=== PATIENT | female | born 1980 | race Two or more races ===

== ENCOUNTER 2023-08-08 08:51 | Outpatient (AMB) | payer OTHER, SELFPAY ==
--- NOTE | 2023-08-08 09:55 | MHC.OFFWIV ---
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 Patient reports symptoms of cough, chest tightness, sinus tenderness, sore throat, x2 weeks. Patient has been utilizing allergy medication and keci-ohc-mdupcre Sudafed with mild relief. Patient reports that usually once per year she gets a sinus infection, this feels similar. Denies sick contacts. Denies fever, chest pain, shortness a breath, nausea, vomiting, diarrhea. On physical exam patient has erythema and cobblestoning of the pharynx. Positive for sinus tenderness. TM intact and pearly lehman bilaterally. Breath sounds clear bilaterally, heart sounds normal, S1-S2. Will obtain URI swab today. Will call patient results [facility] Social History Patient Tobacco Use Status: Never used Tobacco Review of Systems Const All systems reviewed & are unremarkable except as noted in HPI and below Denies chills and Denies fever(s) Physical Exam Vital Signs: Last Vital Signs Temp 98.0 F 08/08/23 10:00 Pulse 90 08/08/23 10:00 BP 126/80 08/08/23 10:00 Pulse Ox 97 08/08/23 10:00 Oxygen Delivery Method Room Air 08/08/23 10:00 BMI result Body Mass Index 38.4 Const Other: Appearance: Alert.? Oriented X3.? No acute distress.? Head: Normocephalic, Eyes: SClera white. ENT: Pharynx erythema and cobblestoned. No exudates. TM intact and pearly lehman bilaterally. + sinus tenderness. Neck: Normal inspection.? Neck supple.?Full ROM. CVS: Normal heart rate and rhythm.? Pulses normal.? Respiratory: No respiratory distress.? Breath sounds normal.? Neuro: Oriented X 3.? Assessment & Plan Assessment & Plan (1) Sinusitis: Comment: Will give azithromycin and prednisone. Will call patient with URI swab results. Patient has been educated on signs of worsening symptoms and when to report back to the walk-in or when to present to the ED Code(s): J32.9 - Chronic sinusitis, unspecified Qualifiers: Chronicity: acute Recurrence: non-recurrent Sinusitis location: unspecified location Qualified Code(s): J01.90 - Acute sinusitis, unspecified Plan: Take your medications as prescribed. If you were prescribed antibiotics today, it is important that you take your medication to their entirety, do not skip any doses, do not finish them early. Follow-up with your primary care provider this week. Return to the emergency department with new or worsening symptoms. Such as fevers, chills, chest pain, shortness of breath, nausea, vomiting, dizziness, headache, vision changes, lethargy In case of emergency call 911 Orders: Orders SARS-CoV2/FLU/RSV Today J06.9 - Acute upper respiratory infection, unspecified Medications: New azithromycin For 250 mg dose pack: take 500 mg today (day 1), then 250 mg for 4 days (days 2-5) PO 6 tabs 0RF prednisone 40 mg (2 x 20 mg) PO DAILY 10 tabs 0RF Coding Level of Care Code Est Pt Level 3 (32371) Diagnoses Acute non-recurrent sinusitis, unspecified location J01.90 Chronicity: acute Recurrence: non-recurrent Sinusitis location: unspecified location Time Spent (min) 24
[2023-08-08 10:00] VITALS: BP 126/80; PULSE 90; TEMP 36.7; O2SAT 97; BMI 38.4
--- OUTSIDE RECORDS SUMMARY | 2023-08-11 09:45 | XMS_ITS | Continuity of Care Document ---
Author Organization [facility] ter Address [address] [place] [address]- Care Team Providers Care Labor Contract Analyst Name Role Phone No REYNOLDS, Liz Rubio Primary Care Physic natalio Encounter [facility] Date(s): 12/07/21 - 12/08/[address] [address]- Discharge Disposition: A-D/C Home Attending Physician: Jesica Zuleta MD Admitting Physician: Jesica Zuleta MD Referring Physician: Jesica Zuleta MD Allergies, Adverse Reactions, Alerts Substance Reaction Severity Status Pollen sneeing, ithy eyes Active Immunizations Given and Recorded Vaccine Date Status Refusal Reason SARS-CoV-2 (COVID-19) mRNA BNT-162b2 vac 07/11/20 Given SARS-CoV-2 (COVID-19) mRNA BNT-162b2 vac 06/20/20 Given Medications acetaminophen-HYDROcodone 325 mg-5 mg oral tablet 2 tablet, Tablet, By Mouth, Every 4 hours, PRN for Pain , Severe, Routine, 12/07/21 10:20:00 EDT Start Date: 12/07/21 Stop Date: 12/08/21 Status: Discontinued Problem List Condition Confirmation Course Effective Dates Status Health St atus Informant Obese class II Confirmed Active Vital Signs Most recent to oldest [Reference Range]: 1 2 3 Height 158 cm (12/08/21 11:37 AM) 158 cm (12/08/21 8:36 AM) 158 cm (12/08/21 5:24 AM) Weight 90.00 kg (12/07/21 6:15 AM) 90.00 kg (12/06/21 10:25 AM) Oxygen Saturation [94-100 %] 97 % (12/08/21 11:37 AM) 100 % (12/08/21 8:36 AM) 98 % (12/08/21 5:24 AM) Pulse Rate [55-90 bpm] 73 bpm (12/08/21 11:37 AM) 82 bpm (12/08/21 8:36 AM) 82 bpm (12/08/21 5:24 AM) Body Mass Index [18.5-24.99 kg/m2] 36.05 kg/m2 *>HHI* (12/07/21 6:15 AM) 36.05 kg/m2 *>HHI* (12/06/21 10:25 AM) Blood Pressure [90-138/55-84 mm Hg] 129/76mm Hg (12/08/21 11:37 AM) 108/47mm Hg (12/08/21 8:36 AM) 111/69mm Hg (12/08/21 5:24 AM) Respiratory Rate [16-30 br/min] 18 br/min (12/08/21 11:37 AM) 18 br/min (12/08/21 9:49 AM) 21 br/min (12/08/21 8:36 AM) Temperature [96.8-100.4 DegF] 98.4 DegF (12/08/21 11:37 AM) 97.5 DegF (12/08/21 8:36 AM) 98.1 DegF (12/08/21 5:24 AM) Liters per Minute 5 L/min (12/07/21 10:00 AM) 5 L/min (12/07/21 9:45 AM) Mode of Delivery (Oxygen) Room air (12/08/21 11:37 AM) Room air (12/08/21 8:36 AM) Room air (12/08/21 5:24 AM) Blood pressure sites Arm, left (12/08/21 11:37 AM) Arm, right (12/08/21 5:24 AM) Arm, right (12/08/21 2:12 AM) Temperature Route Oral (12/08/21 11:37 AM) Oral (12/08/21 8:36 AM) Oral (12/08/21 5:24 AM) Dry Weight 91.1 kg (12/07/21 6:15 AM) Dry Weight Obtained Via Standing scale (12/07/21 6:15 AM) Patient Care team information Personnel Name: No REYNOLDS, Liz Rubio Address: Address: [address] [place] [address]
--- OUTSIDE RECORDS SUMMARY | 2023-08-11 09:45 | XMS_ITS | Continuity of Care Document ---
Author Organization [facility] Address [address] [place] [address]- Care Team Providers Care Digital Assistant Name Role Phone Paula Faith MD Primary Care Physician [phone] Encounter [facility] Date(s): 03/07/23 - 04/06/23 [facility] [address] [place] [address]- Attending Physician: Ana Rosa Eagle Admitting Physician: Ana Rosa Eagle Referring Physician: Ana Rosa Eagle Allergies, Adverse Reactions, Alerts Substance Reaction Severity Status Pollen sneeing, ithy eyes Active Immunizations Given and Recorded Vaccine Date Status Refusal Reason SARS-CoV-2 (COVID-19) mRNA BNT-162b2 vac 07/11/20 Given SARS-CoV-2 (COVID-19) mRNA BNT-162b2 vac 06/20/20 Given Problem List Condition Confirmation Course Effective Dates Status Health St atus Informant Obese class II Confirmed Active Patient Care team information Care Team Personnel Name: Paula Faith MD Position: Reference Physician Member Role: PCP Address: Address: [address] [place] [address]- [place] Name: Marianna Dudley RN Position: S RN Member Role: Primary Care Nurse Name: June Ruiz LPN Position: [facility] RN Member Role: Primary Care Nurse Care Team Related Persons Name: LORI HUSAM Address: home [address] [place] [address]
--- OUTSIDE RECORDS SUMMARY | 2023-08-11 09:45 | XMS_ITS | Continuity of Care Document ---
Author Organization [facility] Address [address] [place] [address]- Care Team Providers Care Farm Equipment Engineer Name Role Phone Paula Faith MD Primary Care Physician Encounter [id number] Date(s): 03/07/23 - 03/14/23 [facility] [address] [place] [address]- Attending Physician: Imelda Santoyo MD Referring Physician: Paula Faith MD Allergies, Adverse Reactions, Alerts Substance Reaction Severity Status Pollen sneeing, ithy eyes Active Immunizations Given and Recorded Vaccine Date Status Refusal Reason SARS-CoV-2 (COVID-19) mRNA BNT-162b2 vac 07/11/20 Given SARS-CoV-2 (COVID-19) mRNA BNT-162b2 vac 06/20/20 Given Problem List Condition Confirmation Course Effective Dates Status Health St atus Informant Obese class II Confirmed Active Vital Signs Most recent to oldest [Reference Range]: 1 Height 158 cm (03/07/23 3:46 PM) Oxygen Saturation [94-100 %] 100 % (03/07/23 3:46 PM) Pulse Rate [55-90 bpm] 91 bpm *H* (03/07/23 3:46 PM) Blood Pressure [90-138/55-84 mm Hg] 141/ 79mm Hg *H* (03/07/23 3:46 PM) Respiratory Rate [16-30 br/min] 20 br/mi n (03/07/23 3:46 PM) Temperature [96.8-100.4 DegF] 98.5 DegF (03/07/23 3:46 PM) Mode of Delivery (Oxygen) Room air (03/07/23 3:46 PM) Blood pressure sites Arm, right (03/07/23 3:46 PM) Temperature Route Temporal (03/07/23 3:46 PM) Note * Florinda Muniz: PERFORM, SIGN, VERIFY Event Display: Patient Education/Instruction Authored Date: [id number] [facility] Clinical Summary Name NAHID SANDOVAL Age 42 Years 1980 PCP Paula Faith MD PCP Visit Date 03/07/2023 13:26:00 Additional Instructions: Scheduled Appointments?? Future Appointments ?No Future Appointments Scheduled Follow-Up Instructions ?? Diagnosis Medications: Please continue your medications until treatment is completed or stopped by your provider. Discuss any questions related to medications with your provider. New Medications [id number], [address] [place] [phone], [phone] Benzonatate (benzonatate 200 mg oral capsule) 1 capsule Oral 3 times a day as needed as needed for cough for 7 Days. Refills: 0. Next Dose: PredniSONE (predniSONE 20 mg oral tablet) 2 tab(s) Oral Daily for 3 Days. Take in AM daily. Take with food.. Refills: 0. Next Dose: Allergy Info:?? Pollen Medications Given This Visit Future Orders ?No future orders Vital Signs Height 158 cm Weight BMI Blood Pressure 141 mm Hg/79 mm Hg Temperature 98.5 DegF Pulse Rate 91 bpm Respiratory Rate 20 br/min 02 Sat Mode of Delivery 100 %/Room air You can now view a summary of your hospital visit from the comfort of your home through a free online portal called [employer]. [employer] is a website that allows you to securely view your medical information including discharge summary, medications and follow-up visits. ??You can alsosend a secure electronic message to your doctor???s office to request appointments, renew medications or just ask a question. You can enroll at [email or web address] or register during your next office visit. Disclaimer:?? The information provided is of a general nature and is intended to be used in conjunction with the recommendations and advice of your health care practitioner. ??Every effort has been made to ensure that the information provided is accurate and complete at the time it is provided to you however, as your needs change, or, as new ??information becomes available, different or additional instructions may be required. If you have questions, please consult with your primary care provider or pharmacist, as appropriate. ??This information is not intended to serve as substitution for assessment and evaluation by a qualified health care provider. If you do not have a primary care provider, you may find a [facility] provider by calling [facility] [employer] at [phone]. [facility], in keeping with [facility] guidance, no longer requires face masks for staff, patientsor visitors in most situations. Similar to time spent indoors at other locations, there is the chance that you were exposed to respiratory viruses during your time with us (such as flu or COVID-19).? If you develop symptoms concerning for a viral respiratory infection, please seek testing (and treatment if indicated) from your medical provider or home test kit. For information about the plan of care including goals and instructions for your diagnosis, please see the patient education orders section of this document. Patient Education Materials?? The content of this educational material or handout may have been modified, supplemented, or adapted from its original content and format to support your individualized medical care. Patient Care team information Care Team Personnel Name: Paula Faith MD Position: Reference Physician Member Role: PCP Address: Address: [address] [place] [phone]- [place] Name: Marianna Dudley RN Position: S RN Member Role: Primary Care Nurse Name: June Ruiz LPN Position: S RN Member Role: Primary Care Nurse Care Team Related Persons Name: HUSAM SANDOVAL Address: home [address] [place] [address]
== END 2023-08-08 10:53 | disposition home or self-care (01) ==
PROVIDERS: PCP Student in an Organized Health Care Education/Training Program; Visit Provider Nurse Practitioner Primary Care
DX: J01.90 Acute sinusitis, unspecified (principal)
CPT/HCPCS: 99213

== ENCOUNTER 2023-08-08 13:29 | Outpatient (REF) | payer OTHER, SELFPAY ==
[2023-08-08 14:39] LABS: Influenza A PCR NEGATIVE (Negative); Influenza B PCR NEGATIVE (Negative); Resp Syncy Virus RNA Qual PCR NEGATIVE (Negative); SARS COV2 PCR INHOUSE NEGATIVE (Negative)
== END 2023-08-08 13:30 | disposition home or self-care (01) ==
LOC: HO.LNP 13:29
PROVIDERS: Visit Provider Nurse Practitioner Primary Care
DX: J06.9 Acute upper respiratory infection, unspecified (principal)
CPT/HCPCS: 0241U